=== PATIENT | female | born 1965 | race Caucasian/White ===

== ENCOUNTER 2018-05-10 11:42 | Outpatient (CLI) | payer BC | END 2018-05-10 11:43 | disposition home or self-care (01) | LOC: BICMAMMO 11:42 | PROVIDERS: ATTEND Family Medicine | DX: Z12.31 Encounter for screening mammogram for malignant neoplasm of breast (principal); R92.1 Mammographic calcification found on diagnostic imaging of breast | CPT/HCPCS: 77063; 77067 ==

== ENCOUNTER 2018-10-03 14:35 | Outpatient (CLI) | payer OTHER | END 2018-10-03 14:36 | disposition home or self-care (01) | LOC: DTY/OP 14:35 | PROVIDERS: ATTEND Family Medicine | DX: E66.9 Obesity, unspecified (principal); E11.9 Type 2 diabetes mellitus without complications | CPT/HCPCS: 97802 ==

== ENCOUNTER 2018-10-04 10:30 | Outpatient (CLI) | payer BC ==
--- NOTE | 2018-10-04 13:04 | ULT ---
RIGHT UPPER QUADRANT ULTRASOUND: HISTORY: Right upper quadrant pain. FINDINGS: The liver demonstrates increased echogenicity, consistent with fatty infiltration, with a focal area of sparing adjacent to the gallbladder. No focal mass or intrahepatic ductal dilatation is seen. No gallstones, gallbladder wall thickening, or pericholecystic fluid is identified. The pancreas is no t well visualized due to overlying bowel gas. The common duct measures 6 mm in diameter. The right kidney is normal. No free fluid is seen in the Olivera pouch. IMPRESSION: 1. Fatty liver. 2. No evidence of cholelithiasis. POS: OFF
== END 2018-10-04 10:31 | disposition home or self-care (01) ==
LOC: BICULT 10:30
PROVIDERS: ATTEND Family Medicine
DX: R10.811 Right upper quadrant abdominal tenderness (principal); K76.0 Fatty (change of) liver, not elsewhere classified
CPT/HCPCS: 76705

== ENCOUNTER 2018-12-19 07:36 | Outpatient (CLI) | payer BC ==
--- NOTE | 2018-12-19 12:23 | NM ---
NUCLEAR MEDICINE HIDA SCAN WITH DRUG: HISTORY: Right upper quadrant pain. COMPARISON: Gallbladder ultrasound 10/04/2018. FINDINGS: The patient was given intravenous administration of Technetium 99m mebrofenin, 5.5 mCi Subsequently, 1 hour after injection 8 ounces of Ensure was given p.o. There is adequate hepatic uptake of radiotracer. The gallbladder was seen quickly as well as the com mon bile duct. The calculated ejection fraction is 94%. IMPRESSION: Normal nuclear medicine HIDA scan with ejection fraction. POS: SYED
== END 2018-12-19 07:37 | disposition home or self-care (01) ==
LOC: NM 07:36
PROVIDERS: ATTEND Internal Medicine
DX: K76.0 Fatty (change of) liver, not elsewhere classified (principal); R10.11 Right upper quadrant pain; R11.0 Nausea
CPT/HCPCS: 78227; A9537

== ENCOUNTER 2019-01-21 07:40 | Outpatient (CLI) | payer BC ==
--- NOTE | 2019-01-21 08:37 | CT ---
CT ABDOMEN: Date: 01/21/19 COMPARISON: None available. HISTORY: Right upper quadrant pain, palpable mass in right abdominal region anteriorly. TECHNIQUE: Axial CT imaging at 5 mm intervals through the abdomen with IV and oral contrast. Coronal reformatted imaging obtained. FINDINGS: The imaged lung bases are unremarkable. No free air or fluid in the abdomen. Pelvis is not imaged on this exam. Relative hypodensity of hepatic parenchyma suggests steatosis. No discrete focal liver les ion. Limited CT evaluation of the gallbladder is unremarkable. The spleen, pancreas, and adrenal glan ds are unremarkable. A duodenal diverticulum is noted. Subcentimeter hypodensities are noted within e ach kidney, too small to characterize, likely representing small cysts. No evidence for hydronephrosi s noted on either side. There is atherosclerotic calcification of the infrarenal abdominal aorta. A very small sliding type h iatal hernia is noted. No lymphadenopathy is seen in the abdomen. Visualized portions of the bowel de monstrate no acute findings. In the area of palpable concern on the right anteriorly, there is no CT abnormality. Review of the osseous structures demonstrates no acute findings. IMPRESSION: Incidental findings as detailed above. No acute findings are seen. POS: OFF
[2019-01-21] MEDS ORDERED: ISOVUE-370 76%-LOCM 1 ML ONE (16:49)
== END 2019-01-21 07:41 | disposition home or self-care (01) ==
LOC: BICCT 07:40
PROVIDERS: ATTEND Internal Medicine
DX: R10.11 Right upper quadrant pain (principal)
CPT/HCPCS: 74160

== ENCOUNTER 2019-05-30 08:21 | Outpatient (CLI) | payer BC ==
--- NOTE | 2019-06-03 06:46 | MMO ---
Bilateral MAMMO Bilat Screen [facility]. CLINICAL HISTORY: Patient is 54 years old and is seen for screening. The patient family history of breast cancer is unknown. The patient has no personal history of cancer. VIEWS: The views performed were: bilateral craniocaudal with tomosynthesis and bilateral mediolateral oblique with tomosynthesis. FILMS COMPARED: The present examination has been compared to a prior imaging study performed at [facility] on 05/10/2018. MAMMOGRAM FINDINGS: The breasts are heterogeneously dense, which could obscure a lesion on mammography. There are benign appearing calcifications seen in both breasts. There are no suspicious masses, suspicious calcifications, or new areas of architectural distortion. IMPRESSION: THERE IS NO MAMMOGRAPHIC EVIDENCE OF MALIGNANCY. A ROUTINE FOLLOW-UP MAMMOGRAM IN 1 YEAR IS RECOMMENDED. THE RESULTS OF THIS EXAM WERE SENT TO THE PATIENT. ACR BI-RADS Category 2 - Benign finding MAMMOGRAPHY NOTE: 1. A negative mammogram report should not delay a biopsy if a dominant of clinically suspicious mass is present. 2. Approximately 10% to 15% of breast cancers are not detected by mammography. 3. Adenosis and dense breasts may obscure an underlying neoplasm. Reported by: ESTER LUBIN MD Electonically Signed: [id number]
== END 2019-05-30 08:22 | disposition home or self-care (01) ==
LOC: BICMAMMO 08:21
PROVIDERS: ATTEND Family Medicine
DX: Z12.31 Encounter for screening mammogram for malignant neoplasm of breast (principal); Z80.3 Family history of malignant neoplasm of breast
CPT/HCPCS: 77063; 77067

== ENCOUNTER 2021-06-03 08:06 | Outpatient (CLI) | payer BC | END 2021-06-03 08:07 | disposition home or self-care (01) | LOC: BICMAMMO 08:06 | PROVIDERS: ATTEND Student in an Organized Health Care Education/Training Program | DX: Z12.31 Encounter for screening mammogram for malignant neoplasm of breast (principal); Z80.3 Family history of malignant neoplasm of breast | CPT/HCPCS: 77063; 77067 ==

== ENCOUNTER 2022-05-31 10:43 | Outpatient (CLI) | payer BC | END 2022-05-31 10:44 | disposition home or self-care (01) | LOC: BICRAD 10:43 | PROVIDERS: ATTEND Family Medicine | DX: I10 Essential (primary) hypertension (principal) | CPT/HCPCS: 71046 ==

== ENCOUNTER 2022-06-05 08:02 | Outpatient (CLI) | payer BC | END 2022-06-05 08:03 | disposition home or self-care (01) | LOC: BICMAMMO 08:02 | PROVIDERS: ATTEND Student in an Organized Health Care Education/Training Program | DX: Z12.31 Encounter for screening mammogram for malignant neoplasm of breast (principal) | CPT/HCPCS: 77063; 77067 ==

== ENCOUNTER 2025-06-23 13:03 | Outpatient (CLI) | payer BC | END 2025-06-23 13:04 | disposition home or self-care (01) | LOC: BICMAMMO 13:03 | PROVIDERS: ATTEND Family Medicine | DX: Z12.31 Encounter for screening mammogram for malignant neoplasm of breast (principal) | CPT/HCPCS: 77063; 77067 ==